=== PATIENT | female | born 1965 | race Caucasian/White ===

== ENCOUNTER 2019-01-06 11:08 | Inpatient (IN) | payer OTHER ==
[2019-01-06 12:49] VITALS: BMI 22.6
--- NOTE | 2019-01-06 13:31 | HP ---
CIWA Score Nausea/Vomitin Muscle Tremors: 3 Anxiety: 3 Agitation: 3 Paroxysmal Sweats: 1-Minimal Palms Moist Orientation: 0-Oriented Tacttile Disturbances: 1-Very Mild Itch/Numbness Auditory Disturbances: 1-Very Mild Visual Disturbances: 0-None Headache: 2-Mild CIWA-Ar Total Score: 16 - Admission Criteria OASAS Guidelines: Admission for Medically Managed Detox: Requires at least one of the followin. CIWA greater than 12 2. Seizures within the past 24 hours 3. Delirium tremens within the past 24 hours 4. Hallucinations within the past 24 hours 5. Acute intervention needed for co occurring medical disorder 6. Acute intervention needed for co occurring psychiatric disorder 7. Severe withdrawal that cannot be handled at a lower level of care (continued vomiting, continued diarrhea, abnormal vital signs) requiring intravenous medication and/or fluids 8. Admission ROS BHS - HPI Chief Complaint: i need help to stop drinking alcohol Allergies/Adverse Reactions: Allergies Allergy/AdvReac Type Severity Reaction Status Date / Time No Known Allergies Allergy Verified 01/06/19 12:26 History of Present Illness: this 53 years old female with alcohol dependence seeking detox,withdrawal symptom, last detox 20 years ago syncope alcohol related nicotine dependence 30 cigarette/day,requesting nicotine patch history of copd admitted at [facility] to 12/23/18 has been drinking since then history of hypercholesterolemia bipolar disorder for 2 years do not want to see psychiatrist longest sobriety 3 years plan for out patient program after detox Exam Limitations: No Limitations - Ebola screening Have you traveled outside of the country in the last 21 days: No Have you had contact with anyone from an Ebola affected area: No Do you have a fever: No - Review of Systems Constitutional: Night Sweats, Changes in sleep EENT: reports: Nose Congestion Respiratory: reports: No Symptoms reported, Other (copd) Cardiac: reports: No Symptoms Reported GI: reports: Nausea, Poor Appetite : reports: No Symptoms Reported Integumentary: reports: Dryness Neuro: reports: Headache, Tremors Endocrine: reports: No Symptoms Reported Hematology: reports: No Symptoms Reported Psychiatric: reports: No Sypmtoms Reported, Judgement Intact, Mood/Affect Appropiate, Orientated x3, other (bipolar disorder) Patient History - Patient Medical History Hx Anemia: No Hx Asthma: Yes (on meds) Hx Chronic Obstructive Pulmonary Disease (COPD): Yes (on meds) Hx Cancer: No Hx Cardiac Disorders: No Hx Congestive Heart Failure: No Hx Hypertension: No Hx Hypercholesterolemia: Yes (on med) Hx Pacemaker: No HX Cerebrovascular Accident: No Hx Seizures: No Hx Dementia: No Hx Diabetes: No Hx Gastrointestinal Disorders: Yes (gerd) Hx Liver Disease: No Hx Genitourinary Disorders: No Hx Sexually Transmitted Disorders: No Hx Renal Disease (ESRD): No Hx Thyroid Disease: No Hx Human Immunodeficiency Virus (HIV): No (last 2016 negative) Hx Hepatitis C: No Hx Depression: No Hx Suicide Attempt: No Hx Bipolar Disorder: Yes (no med) Hx Schizophrenia: No Other Medical History: no sucidal,no homicidal - Patient Surgical History Hx Cholecystectomy: Yes (lap in 2009 ) - PPD History Previous Implant?: Yes Documented Results: Negative w/o proof Implanted On Prior R Admission?: No PPD to be Administered?: Yes - Reproductive History Patient is a Female of Child Bearing Age (11 -55 yrs old): Yes Last Menstrual Period: 03/17/11 Patient : No - Smoking Cessation Smoking history: Current every day smoker Have you smoked in the past 12 months: Yes Aproximately how many cigarettes per day: 30 Cigars Per Day: 0 Hx Chewing Tobacco Use: No Initiated information on smoking cessation: Yes 'Breaking Loose' booklet given: 01/06/19 - Substances abused Alcohol Substance route: Oral Frequency: Daily Amount used: 6-12 bottles of beer (12 ounces) Age of first use: 11 Date of last use: 01/06/19 Family Disease History - Family Disease History Family Disease History: Other: Father (alcohol,decesed), Mother (alcohol, ), Brother (alcohol,), Sister (alcohol,no contact) Admission Physical Exam S - Vital Signs Vital Signs: Vital Signs - 24 hr 01/06/19 12:45 Temperature 98.7 F Pulse Rate 86 Respiratory 20 Rate Blood Pressure 126/82 - Physical General Appearance: Yes: Moderate Distress, Tremorous, Irritable, Sweating, Anxious HEENTM: Yes: Normal ENT Inspection, MICHELET, Pharynx Normal Respiratory: Yes: Lungs Clear, Normal Breath Sounds, No Respiratory Distress Neck: Yes: Within Normal Limits, Supple, Trachea in good position Breast: Yes: Breast Exam Deferred Cardiology: Yes: Within Normal Limits, Regular Rhythm, Regular Rate, S1, S2 Abdominal: Yes: Within Normal Limits, Normal Bowel Sounds, Non Tender, Flat, Other (s/p lap cholecystectomy epigastric hernia) Genitourinary: Yes: Within Normal Limits, Burning, Frequency, Hesitency, Itiching Back: Yes: Muscle Spasm Musculoskeletal: Yes: Back pain, Muscle Pain Extremities: Yes: Within Normal Limits, Normal Range of Motion, Tremors Neurological: Yes: gluer and wedger II-XII NML intact, Fully Oriented, Alert, Motor Strength 5/5 Integumentary: Yes: Dry Lymphatic: Yes: Within Normal Limits - Diagnostic (1) Alcohol dependence with uncomplicated withdrawal Current Visit: Yes Status: Acute (2) Nicotine dependence Current Visit: Yes Status: Acute (3) Syncope Current Visit: Yes Status: Acute (4) COPD (chronic obstructive pulmonary disease) Current Visit: Yes Status: Acute (5) Asthma Current Visit: Yes Status: Acute (6) GERD (gastroesophageal reflux disease) Current Visit: Yes Status: Acute (7) Pancreatitis Current Visit: Yes Status: Acute (8) Bipolar disorder Current Visit: Yes Status: Acute Cleared for Admission S - Detox or Rehab [facility] Level of Care: Medically Managed Detox Regimen/Protocol: Librium Inpatient Rehab Admission - Rehab Decision to Admit Inpatient rehab admission?: No
[2019-01-06] MEDS ORDERED: MELATONIN 5 MG TABLETS PO PRN (13:46)
[2019-01-06] MEDS ORDERED: MENTHOL/PHENOL 1 EACH UD MM PRN (13:46)
[2019-01-06] MEDS ORDERED: BISMUTH SUBSALICYLATE 262 MG/15 ML BTL PO PRN (13:46)
[2019-01-06] MEDS ORDERED: METHOCARBAMOL 500 MG TABLET PO PRN (13:46)
[2019-01-06] MEDS ORDERED: ACETAMINOPHEN 325 MG TABLET (FP) PO PRN ×2 (13:46)
[2019-01-06] MEDS ORDERED: MAGNESIUM HYDROX 2400MG/30ML ORAL SUSPENSION 30 ML CUP PO PRN (13:46)
[2019-01-06] MEDS ORDERED: hydrOXYzine PAMOATE 25 MG CAPSULE (FP) PO PRN (13:46)
[2019-01-06] MEDS ORDERED: IBUPROFEN 400 MG TABLET (FP) PO PRN (13:46)
[2019-01-06] MEDS ORDERED: chlordiazePOXIDE HCL 25 MG CAPSULE PO PRN (13:46)
[2019-01-06] MEDS ORDERED: MAG HYDROX/AL HYDROX/SIMETH 30 ML UNIT-DOSE CUP PO PRN (13:46)
[2019-01-06] MEDS ORDERED: MAGNESIUM CITRATE 300 ML BOTTLE PO PRN (13:46)
[2019-01-06] MEDS ORDERED: ALBUTEROL SO4 8 GM HFA INHALER IH PRN (13:52)
[2019-01-06] MEDS ORDERED: ALBUTEROL SO4 2.5/IPRATROPIUM 0.5 INH SOL 3 ML VIAL.NEB. NEB PRN (13:55)
[2019-01-06] MEDS ORDERED: ALBUTEROL SO4 0.083% IH SOL 2.5 MG/3 ML VIAL.NEB. NEB PRN (14:18)
[2019-01-06] MEDS: NICOTINE 21 MG/24 HOURS TOPICAL PATCH TD SCH (14:31)
[2019-01-06] MEDS: TIOTROPIUM BROMIDE 2.5 MCG (SPIRIVA) RESPIMAT INHALER IH SCH (15:20)
[2019-01-06] MEDS: chlordiazePOXIDE HCL 25 MG CAPSULE PO SCH ×2 (17:25→22:16)
[2019-01-06 19:01] LABS: HEMATOCRIT 39.1 % (32.4-45.2); HEMOGLOBIN 13.4 GM/dL (10.7-15.3); MCH 32.8 pg (25.7-33.7); MCHC 34.3 g/dl (32.0-36.0); MEAN CELL VOLUME 95.5 fl (80-96); PLATELET COUNT 211 K/MM3 (134-434); RDW 13.4 % (11.6-15.6); WHITE BLOOD COUNT 7.1 K/mm3 (4.0-10.0)
[2019-01-06 19:32] LABS: ALBUMIN 3.8 g/dl (3.4-5.0); ALK PHOS 76 U/L (45-117); ANION GAP 9 MMOL/L (8-16); BILIRUBIN,TOTAL 0.6 mg/dL (0.2-1); BLOOD UREA NITROGEN 17 mg/dL (7-18); CALCIUM 9.2 mg/dL (8.5-10.1); CHLORIDE 104 mmol/L (98-107); CO2 25 mmol/L (21-32); CREATININE 0.6 mg/dL (0.55-1.3); GLUCOSE,RANDOM 87 mg/dL (74-106); POTASSIUM 3.8 mmol/L (3.5-5.1); SGOT/AST 31 U/L (15-37); SGPT/ALT 77 U/L (13-61); SODIUM 138 mmol/L (136-145); TOT PROT 7.2 g/dl (6.4-8.2)
[2019-01-06] MEDS: BUDESONIDE/FORMETEROL FUMARATE 160/4.5 mcg INHALER IH SCH (22:16)
[2019-01-06] MEDS: THIAMINE HCL 100 MG TABLET (FP) PO SCH (22:16)
[2019-01-07] MEDS: chlordiazePOXIDE HCL 25 MG CAPSULE PO SCH ×4 (05:38→22:06)
[2019-01-07] MEDS ORDERED: PATIENT'S OWN MEDICATION (NON-FORMULARY) (Tiotropium Bromide [Spiriva] 1 INH) PO SCH (10:00)
[2019-01-07] MEDS: BUDESONIDE/FORMETEROL FUMARATE 160/4.5 mcg INHALER IH SCH ×2 (10:22→22:05)
[2019-01-07] MEDS: TIOTROPIUM BROMIDE 2.5 MCG (SPIRIVA) RESPIMAT INHALER IH SCH (10:22)
[2019-01-07] MEDS: PRENATAL VITAMINS W/ FOLIC ACID TABLET (FP) PO SCH (10:23)
[2019-01-07] MEDS: NICOTINE 21 MG/24 HOURS TOPICAL PATCH TD SCH (10:23)
[2019-01-07] MEDS: CHOLECALCIFEROL (VITAMIN D3) 1,000 UNIT TABLET (FP) PO SCH (10:23)
[2019-01-07] MEDS: MONTELUKAST NA 10 MG TABLET PO SCH (10:23)
[2019-01-07] MEDS: ATORVASTATIN CA 10 MG TABLET (FP) PO SCH (10:23)
--- NOTE | 2019-01-07 11:41 | EKG ---
Test Reason : Blood Pressure : / mmHG Vent. Rate : 074 BPM Atrial Rate : 074 BPM P-R Int : 128 ms QRS Dur : 080 ms QT Int : 398 ms P-R-T Axes : 065 031 048 degrees QTc Int : 441 ms NORMAL SINUS RHYTHM NORMAL ECG NO PREVIOUS ECGS AVAILABLE Confirmed by Willard Rosado MD ([id number]) on 01/07/2019 11:40:45 AM Referred By: Confirmed By:Willard Rosado MD
--- NOTE | 2019-01-07 12:02 | PN ---
[facility] CIWA - CIWA Score Nausea/Vomitin-Mild Nausea/No Vomiting Muscle Tremors: 3 Anxiety: 1-Mildly Anxious Agitation: 2 Paroxysmal Sweats: 1-Minimal Palms Moist Orientation: 2-Disoriented Date<2 days Tacttile Disturbances: 0-None Auditory Disturbances: 0-None Visual Disturbances: 0-None Headache: 1-Very Mild CIWA-Ar Total Score: 11 [facility] Progress Note (SOAP) Subjective: doing ok today with librium detox protocol Objective: 01/07/19 12:01 Vital Signs Temperature 98.2 F 01/07/19 09:11 Pulse Rate 89 01/07/19 09:11 Respiratory Rate 18 01/07/19 09:11 Blood Pressure 112/74 01/07/19 09:11 O2 Sat by Pulse Oximetry (%) Laboratory Last Values WBC 7.1 K/mm3 (4.0-10.0) 01/06/19 13:55 RBC 4.10 M/mm3 (3.60-5.2) 01/06/19 13:55 Hgb 13.4 GM/dL (10.7-15.3) 01/06/19 13:55 Hct 39.1 % (32.4-45.2) 01/06/19 13:55 MCV 95.5 fl (80-96) 01/06/19 13:55 MCH 32.8 pg (25.7-33.7) 01/06/19 13:55 MCHC 34.3 g/dl (32.0-36.0) 01/06/19 13:55 RDW 13.4 % (11.6-15.6) 01/06/19 13:55 Plt Count 211 K/MM3 (134-434) 01/06/19 13:55 MPV 9.0 fl (7.5-11.1) 01/06/19 13:55 Sodium 138 mmol/L (136-145) 01/06/19 13:55 Potassium 3.8 mmol/L (3.5-5.1) 01/06/19 13:55 Chloride 104 mmol/L (98-107) 01/06/19 13:55 Carbon Dioxide 25 mmol/L (21-32) 01/06/19 13:55 Anion Gap 9 MMOL/L (8-16) 01/06/19 13:55 BUN 17 mg/dL (7-18) 01/06/19 13:55 Creatinine 0.6 mg/dL (0.55-1.3) 01/06/19 13:55 Creat Clearance w eGFR 103.79 (>60) 01/06/19 13:55 Random Glucose 87 mg/dL (74-106) 01/06/19 13:55 Calcium 9.2 mg/dL (8.5-10.1) 01/06/19 13:55 Total Bilirubin 0.6 mg/dL (0.2-1) 01/06/19 13:55 AST 31 U/L (15-37) 01/06/19 13:55 ALT 77 U/L (13-61) H 01/06/19 13:55 Alkaline Phosphatase 76 U/L (45-117) 01/06/19 13:55 Total Protein 7.2 g/dl (6.4-8.2) 01/06/19 13:55 Albumin 3.8 g/dl (3.4-5.0) 01/06/19 13:55 POC Urine HCG, Qual Negative 01/06/19 13:23 lab noted Assessment: 01/07/19 12:01 alcohol withdrawal sx Plan: continue detox
[2019-01-07] MEDS: THIAMINE HCL 100 MG TABLET (FP) PO SCH (22:05)
[2019-01-08] MEDS: chlordiazePOXIDE HCL 25 MG CAPSULE PO SCH ×2 (06:07→10:27)
[2019-01-08] MEDS: TIOTROPIUM BROMIDE 2.5 MCG (SPIRIVA) RESPIMAT INHALER IH SCH (10:26)
[2019-01-08] MEDS: BUDESONIDE/FORMETEROL FUMARATE 160/4.5 mcg INHALER IH SCH ×2 (10:26→22:40)
[2019-01-08] MEDS: ATORVASTATIN CA 10 MG TABLET (FP) PO SCH (10:27)
[2019-01-08] MEDS: NICOTINE 21 MG/24 HOURS TOPICAL PATCH TD SCH (10:27)
[2019-01-08] MEDS: CHOLECALCIFEROL (VITAMIN D3) 1,000 UNIT TABLET (FP) PO SCH (10:27)
[2019-01-08] MEDS: MONTELUKAST NA 10 MG TABLET PO SCH (10:27)
[2019-01-08] MEDS: PRENATAL VITAMINS W/ FOLIC ACID TABLET (FP) PO SCH (10:27)
--- NOTE | 2019-01-08 14:41 | PN ---
[facility] CIWA - CIWA Score Nausea/Vomitin-Mild Nausea/No Vomiting Muscle Tremors: 3 Anxiety: 2 Agitation: 2 Paroxysmal Sweats: 1-Minimal Palms Moist Orientation: 0-Oriented Tacttile Disturbances: 0-None Auditory Disturbances: 0-None Visual Disturbances: 0-None Headache: 1-Very Mild CIWA-Ar Total Score: 10 S Progress Note (SOAP) Subjective: feeling ok today more energy wants to go to out patient rehab discuss aftercare with staff Objective: 01/08/19 14:40 Vital Signs Temperature 97.0 F L 01/08/19 13:45 Pulse Rate 92 H 01/08/19 13:45 Respiratory Rate 18 01/08/19 13:45 Blood Pressure 108/74 01/08/19 13:45 O2 Sat by Pulse Oximetry (%) Laboratory Last Values WBC 7.1 K/mm3 (4.0-10.0) 01/06/19 13:55 RBC 4.10 M/mm3 (3.60-5.2) 01/06/19 13:55 Hgb 13.4 GM/dL (10.7-15.3) 01/06/19 13:55 Hct 39.1 % (32.4-45.2) 01/06/19 13:55 MCV 95.5 fl (80-96) 01/06/19 13:55 MCH 32.8 pg (25.7-33.7) 01/06/19 13:55 MCHC 34.3 g/dl (32.0-36.0) 01/06/19 13:55 RDW 13.4 % (11.6-15.6) 01/06/19 13:55 Plt Count 211 K/MM3 (134-434) 01/06/19 13:55 MPV 9.0 fl (7.5-11.1) 01/06/19 13:55 Sodium 138 mmol/L (136-145) 01/06/19 13:55 Potassium 3.8 mmol/L (3.5-5.1) 01/06/19 13:55 Chloride 104 mmol/L (98-107) 01/06/19 13:55 Carbon Dioxide 25 mmol/L (21-32) 01/06/19 13:55 Anion Gap 9 MMOL/L (8-16) 01/06/19 13:55 BUN 17 mg/dL (7-18) 01/06/19 13:55 Creatinine 0.6 mg/dL (0.55-1.3) 01/06/19 13:55 Creat Clearance w eGFR 103.79 (>60) 01/06/19 13:55 Random Glucose 87 mg/dL (74-106) 01/06/19 13:55 Calcium 9.2 mg/dL (8.5-10.1) 01/06/19 13:55 Total Bilirubin 0.6 mg/dL (0.2-1) 01/06/19 13:55 AST 31 U/L (15-37) 01/06/19 13:55 ALT 77 U/L (13-61) H 01/06/19 13:55 Alkaline Phosphatase 76 U/L (45-117) 01/06/19 13:55 Total Protein 7.2 g/dl (6.4-8.2) 01/06/19 13:55 Albumin 3.8 g/dl (3.4-5.0) 01/06/19 13:55 POC Urine HCG, Qual Negative 01/06/19 13:23 RPR Titer Nonreactive (NONREACTIVE) 01/06/19 13:55 lab noted Assessment: 01/08/19 14:41 withdrawal sx Plan: continue detox
[2019-01-08 15:59] LABS: URINE APPEARANCE CLEAR; URINE BILIRUBIN NEGATIVE (NEGATIVE); URINE COLOR YELLOW; URINE GLUCOSE (UA) NEGATIVE (NEGATIVE); URINE KETONE NEGATIVE (NEGATIVE); URINE LEUK ESTERASE NEGATIVE (NEGATIVE); URINE NITRITE NEGATIVE (NEGATIVE); URINE PROTEIN NEGATIVE (NEGATIVE); URINE UROBILINOGEN 0.2 mg/dL (0.2-1.0)
[2019-01-08] MEDS ORDERED: chlordiazePOXIDE HCL 10 MG CAPSULE PO PRN (17:00)
[2019-01-08] MEDS: chlordiazePOXIDE HCL 10 MG CAPSULE PO SCH ×2 (18:10→22:40)
[2019-01-08] MEDS: THIAMINE HCL 100 MG TABLET (FP) PO SCH (22:40)
[2019-01-09] MEDS: chlordiazePOXIDE HCL 10 MG CAPSULE PO SCH ×3 (06:02→17:28)
[2019-01-09] MEDS: CHOLECALCIFEROL (VITAMIN D3) 1,000 UNIT TABLET (FP) PO SCH (10:05)
[2019-01-09] MEDS: BUDESONIDE/FORMETEROL FUMARATE 160/4.5 mcg INHALER IH SCH ×2 (10:05→22:05)
[2019-01-09] MEDS: MONTELUKAST NA 10 MG TABLET PO SCH (10:05)
[2019-01-09] MEDS: TIOTROPIUM BROMIDE 2.5 MCG (SPIRIVA) RESPIMAT INHALER IH SCH (10:06)
[2019-01-09] MEDS: PRENATAL VITAMINS W/ FOLIC ACID TABLET (FP) PO SCH (10:07)
[2019-01-09] MEDS: ATORVASTATIN CA 10 MG TABLET (FP) PO SCH (10:07)
[2019-01-09] MEDS: NICOTINE 21 MG/24 HOURS TOPICAL PATCH TD SCH (11:13)
--- NOTE | 2019-01-09 12:35 | PN ---
S CIWA - CIWA Score Nausea/Vomitin-Mild Nausea/No Vomiting Muscle Tremors: 1-None Visible, but [place] Anxiety: 1-Mildly Anxious Agitation: 1-Slight > Activity Paroxysmal Sweats: No Perspiration Orientation: 0-Oriented Tacttile Disturbances: 0-None Auditory Disturbances: 0-None Visual Disturbances: 0-None Headache: 1-Very Mild CIWA-Ar Total Score: 5 S Progress Note (SOAP) Subjective: doing much better today social with peers in day room discuss aftercare with staff Objective: 01/09/19 12:34 Vital Signs Temperature 97.2 F L 01/09/19 09:56 Pulse Rate 87 01/09/19 09:56 Respiratory Rate 16 01/09/19 09:56 Blood Pressure 97/66 01/09/19 09:56 O2 Sat by Pulse Oximetry (%) Laboratory Last Values WBC 7.1 K/mm3 (4.0-10.0) 01/06/19 13:55 RBC 4.10 M/mm3 (3.60-5.2) 01/06/19 13:55 Hgb 13.4 GM/dL (10.7-15.3) 01/06/19 13:55 Hct 39.1 % (32.4-45.2) 01/06/19 13:55 MCV 95.5 fl (80-96) 01/06/19 13:55 MCH 32.8 pg (25.7-33.7) 01/06/19 13:55 MCHC 34.3 g/dl (32.0-36.0) 01/06/19 13:55 RDW 13.4 % (11.6-15.6) 01/06/19 13:55 Plt Count 211 K/MM3 (134-434) 01/06/19 13:55 MPV 9.0 fl (7.5-11.1) 01/06/19 13:55 Sodium 138 mmol/L (136-145) 01/06/19 13:55 Potassium 3.8 mmol/L (3.5-5.1) 01/06/19 13:55 Chloride 104 mmol/L (98-107) 01/06/19 13:55 Carbon Dioxide 25 mmol/L (21-32) 01/06/19 13:55 Anion Gap 9 MMOL/L (8-16) 01/06/19 13:55 BUN 17 mg/dL (7-18) 01/06/19 13:55 Creatinine 0.6 mg/dL (0.55-1.3) 01/06/19 13:55 Creat Clearance w eGFR 103.79 (>60) 01/06/19 13:55 Random Glucose 87 mg/dL (74-106) 01/06/19 13:55 Calcium 9.2 mg/dL (8.5-10.1) 01/06/19 13:55 Total Bilirubin 0.6 mg/dL (0.2-1) 01/06/19 13:55 AST 31 U/L (15-37) 01/06/19 13:55 ALT 77 U/L (13-61) H 01/06/19 13:55 Alkaline Phosphatase 76 U/L (45-117) 01/06/19 13:55 Total Protein 7.2 g/dl (6.4-8.2) 01/06/19 13:55 Albumin 3.8 g/dl (3.4-5.0) 01/06/19 13:55 Urine Color Yellow 01/08/19 10:00 Urine Appearance Clear 01/08/19 10:00 Urine pH 5.0 (5.0-8.0) 01/08/19 10:00 Ur Specific [place] 1.013 (1.010-1.035) 01/08/19 10:00 Urine Protein Negative (NEGATIVE) 01/08/19 10:00 Urine Glucose (UA) Negative (NEGATIVE) 01/08/19 10:00 Urine Ketones Negative (NEGATIVE) 01/08/19 10:00 Urine Blood Negative (NEGATIVE) 01/08/19 10:00 Urine Nitrite Negative (NEGATIVE) 01/08/19 10:00 Urine Bilirubin Negative (NEGATIVE) 01/08/19 10:00 Urine Urobilinogen 0.2 mg/dL (0.2-1.0) 01/08/19 10:00 Ur Leukocyte Esterase Negative (NEGATIVE) 01/08/19 10:00 POC Urine HCG, Qual Negative 01/06/19 13:23 RPR Titer Nonreactive (NONREACTIVE) 01/06/19 13:55 lab noted Assessment: 01/09/19 12:34 mild alcohol withdrawal sx Plan: continue detox
[2019-01-09] MEDS: THIAMINE HCL 100 MG TABLET (FP) PO SCH (22:06)
[2019-01-10] MEDS: chlordiazePOXIDE HCL 10 MG CAPSULE PO SCH (05:29)
[2019-01-10 06:22] VITALS: BP 100/54; PULSE 73; TEMP 97.5
--- NOTE | 2019-01-10 19:34 | DS ---
[facility] Detox Discharge Summary Admission Date: 01/06/19 Discharge Date: 01/10/19 - History Present History: Alcohol Dependence Additional Comments: PATIENT REFERRED TO [facility] ([place], [place]) FOR AFTERCARE. PATIENT WAS DISCHARGED FROM DETOX UNIT IN STABLE MEDICAL CONDITION. Pertinent Past History: Nicotine Dependence, History Of Syncope (Related To Alcohol Withdrawal), History Of C.O.P.D., Asthma, G.E.R.D., History Of Pancreatitis, Bipolar Disorder , Hypercholesterolemia. - Physical Exam Results Vital Signs: Vital Signs Temperature 97.5 F L 01/10/19 06:21 Pulse Rate 73 01/10/19 06:21 Respiratory Rate 18 01/10/19 06:21 Blood Pressure 100/54 L 01/10/19 06:21 O2 Sat by Pulse Oximetry (%) Pertinent Admission Physical Exam Findings: WITHDRAWAL SYMPTOMS. Laboratory Tests 01/06/19 01/06/19 01/06/19 13:23 13:55 13:55 WBC 7.1 RBC 4.10 Hgb 13.4 Hct 39.1 MCV 95.5 MCH 32.8 MCHC 34.3 RDW 13.4 Plt Count 211 MPV 9.0 Sodium 138 Potassium 3.8 Chloride 104 Carbon Dioxide 25 Anion Gap 9 BUN 17 Creatinine 0.6 Creat Clearance w eGFR 103.79 Random Glucose 87 Calcium 9.2 Total Bilirubin 0.6 AST 31 ALT 77 H Alkaline Phosphatase 76 Total Protein 7.2 Albumin 3.8 Urine Color Urine Appearance Urine pH Ur Specific [place] Urine Protein Urine Glucose (UA) Urine Ketones Urine Blood Urine Nitrite Urine Bilirubin Urine Urobilinogen Ur Leukocyte Esterase POC Urine HCG, Qual Negative RPR Titer 01/06/19 01/08/19 13:55 10:00 WBC RBC Hgb Hct MCV MCH MCHC RDW Plt Count MPV Sodium Potassium Chloride Carbon Dioxide Anion Gap BUN Creatinine Creat Clearance w eGFR Random Glucose Calcium Total Bilirubin AST ALT Alkaline Phosphatase Total Protein Albumin Urine Color Yellow Urine Appearance Clear Urine pH 5.0 Ur Specific [place] 1.013 Urine Protein Negative Urine Glucose (UA) Negative Urine Ketones Negative Urine Blood Negative Urine Nitrite Negative Urine Bilirubin Negative Urine Urobilinogen 0.2 Ur Leukocyte Esterase Negative POC Urine HCG, Qual RPR Titer Nonreactive LABS NOTED. - Treatment Hospital Course: Detox Protocol Followed, Detoxed Safely, Responded well, Discharged Condition Good Patient has Accepted a Rehab Referral to: PT. RFEFERRED TO [facility] ([place], [place]). - Medication Discharge Medications: Ambulatory Orders Cholecalciferol (Vitamin D3) [Vitamin D3 -] 2,000 unit PO DAILY 01/06/19 Omeprazole 40 mg PO DAILY 01/06/19 Varenicline Tartrate [Chantix -] 1 mg PO DAILY 01/06/19 Albuterol Sulfate Inhaler - [Ventolin HFA Inhaler -] 2 puff IH Q4H PRN #1 inhaler 01/09/19 Budesonide/Formeterol Fumarate [SYMBICORT 160/4.5mcg -] 1 inh PO BID #1 inhaler 01/09/19 Montelukast Sodium [Singulair] 10 mg PO DAILY #30 tablet 01/09/19 Simvastatin 10 mg PO DAILY #30 tablet 01/09/19 Tiotropium [place] [Spiriva] 1 inh PO DAILY #1 cap.w.dev 01/09/19 - Diagnosis (1) Alcohol dependence with uncomplicated withdrawal Status: Acute (2) Asthma Status: Acute Qualifiers: Asthma severity: unspecified severity Asthma persistence: unspecified Asthma complication type: uncomplicated Qualified Code(s): J45.909 - Unspecified asthma, uncomplicated (3) Bipolar disorder Status: Acute Qualifiers: Active/Remission status: remission status unspecified Qualified Code(s): F31.9 - Bipolar disorder, unspecified (4) COPD (chronic obstructive pulmonary disease) Status: Acute Qualifiers: COPD type: unspecified COPD Qualified Code(s): J44.9 - Chronic obstructive pulmonary disease, unspecified (5) GERD (gastroesophageal reflux disease) Status: Acute Qualifiers: Esophagitis presence: esophagitis presence not specified Qualified Code(s) : K21.9 - Gastro-esophageal reflux disease without esophagitis (6) Nicotine dependence Status: Acute Qualifiers: Nicotine product type: cigarettes Substance use status: uncomplicated Qualified Code(s): F17.210 - Nicotine dependence, cigarettes, uncomplicated (7) Pancreatitis Status: Acute Qualifiers: Chronicity: chronic Pancreatitis type: unspecified pancreatitis type Qualified Code(s): K86.1 - Other chronic pancreatitis (8) Syncope Status: Acute Qualifiers: Syncope type: unspecified Qualified Code(s): R55 - Syncope and collapse - AMA Did Patient Leave Against Medical Advice: No
== END 2019-01-10 08:55 | disposition home or self-care (01) | DRG 775 ==
LOC: YASAS 11:08 → Y3N 13:42
PROVIDERS: ADMIT Surgery; ATTEND Surgery
PROC: HZ2ZZZZ Detoxification Services for Substance Abuse Treatment (ICD-10-PCS; principal; 2019-01-06)
DX: F10.230 Alcohol dependence with withdrawal, uncomplicated (principal); F17.210 Nicotine dependence, cigarettes, uncomplicated; F31.9 Bipolar disorder, unspecified; J44.9 Chronic obstructive pulmonary disease, unspecified; K21.9 Gastro-esophageal reflux disease without esophagitis; E78.00 Pure hypercholesterolemia, unspecified; Z87.19 Personal history of other diseases of the digestive system
CPT/HCPCS: 36415; 80053; 81003; 81025; 85027; 86593; 93005; 93010